=== PATIENT | female | born 1985 | race Two or more races ===

== ENCOUNTER 2018-04-13 21:32 | Emergency (ER) | payer MEDICAID ==
[~2018-04-13] VITALS: Ht 154.9 cm; Wt 81.6 kg
[2018-04-13 21:46] VITALS: BP 143/88
== END 2018-04-14 02:05 | disposition home or self-care (01) ==
LOC: ER 21:32
DX: S43.402A Unspecified sprain of left shoulder joint, initial encounter (principal); S80.01XA Contusion of right knee, initial encounter; V00.131A Fall from skateboard, initial encounter; Y93.89 Activity, other specified; Y99.8 Other external cause status; Y92.89 Other specified places as the place of occurrence of the external cause
CPT/HCPCS: 73030; 73060; 73110; 73560